=== PATIENT | female | born 1995 | race Caucasian/White ===

== ENCOUNTER 2019-07-29 21:52 | Outpatient (CLI) | payer OTHER ==
[2019-07-29 22:55] LABS: Appearance,Urine Cloudy (Clear); Bacteria,Urine Rare /hpf; Bilirubin,Urine Negative (Negative); Blood,Urine Negative (Negative); Color,Urine Yellow; Glucose,Urine (UA) Negative (Negative); Ketones,Urine Negative (Negative); Leukocyte Esterase,Urine Large (Negative); Mucus,Urine Occasional /hpf; Nitrite,Urine Negative (Negative); PH, Urine 6.5 (5.0-8.0); Protein,Urine Negative (Negative); RBC,Urine 3 /hpf (0-5); Specific Gravity,Urine 1.021 (1.001-1.035); Squamous Epithelial Cell,Urine 15 /hpf (0-4); WBC,Urine 45 /hpf (0-5)
[2019-07-29 23:04] VITALS: BP 128/62; PULSE 90; RESP 16; TEMP 97.9
--- NOTE | 2019-09-29 07:41 | P.MSEPDOC ---
Presenting Problems - Arrival Data Date of Arrival on Unit: 07/29/19 Time of Arrival on Unit: 21:52 Mode of Transport: Ambulatory - Complaint OB-Reason for Admission/Chief Complaint: Signs/Symptoms UTI Medical History - Information : 3 Para: 2 Term: 2 : 0 Abortions: Spontaneous or Elective: 0 Number of Living Children: 2 - Gestational Age Gestational Age by ABIGAIL (wks/days): 36 Weeks and 6 Days Review of Systems - Review of Systems Constitutional: No problems Breast: No problems ENT: No problems Cardiovascular: No problems Respiratory: No problems Gastrointestinal: No problems Genitourinary: No problems Musculoskeletal: No problems Neurological: No problems Skin: No problems Vital Signs - Temperature Temperature: 97.9 F Temperature Source: Oral - Pulse Right Brachial Pulse Rate: 90 Pulse Assessment Method: Automatic Cuff - Respirations Respiratory Rate: 16 Oxygen Delivery Method: Room Air - Blood Pressure Right Arm Blood Pressure: 128/62 Blood Pressure Mean: 84 Blood Pressure Source: Automatic Cuff Medical Screen Scoring (Pre) - Cervical Exam Dilation: 1-3 cm = 1 Effacement: More than 50% = 2 Membranes: Intact - Uterine Contractions Frequency: > 5 minutes apart = 1 Duration: N/A Intensity: N/A - Maternal Vital Signs Maternal Temperature: N/A Maternal Blood Pressure: N/A Signs of Preeclampsia: N/A Maternal Respirations: N/A - Maternal Trauma Maternal Trauma: N/A - Assessment - Baby A Baseline FHR: 125 Heart Rate - NICHD Category: Category I (Normal) = 0 NST: Reactive Position: N/A Station: N/A - Total Score - Baby A Total Score - Baby A: 4 - Total Score - Baby B Total Score - Baby B: 4 - Total Score - Baby C Total Score - Baby C: 4 - Level of Risk - Baby A Level of Risk - Baby A: Low (0-5) - Level of Risk - Baby B Level of Risk - Baby B: Low (0-5) - Level of Risk - Baby C Level of Risk - Baby C: Low (0-5) Physician Notification (Pre) - Physician Notified Physician Notified Date: 07/29/19 Physician Notified Time: 23:00 New Order Received: Yes - Notification Comment Comment: D/C home Disposition - Disposition OB Disposition: Discharge to home Discharge Date: 07/29/19 Discharge Time: 23:15 I agree with the RN Medical Screening Exam: No Risk & Benefit of care provided described in d/c instruction: No Risk & Benefit of Care Comment: Cannot agree or disagree secondary to incomplete document Diagnosis: FALSE LABOR BEFORE 37 COMPLETED WEEKS OF GEST, THIRD TRI
== END 2019-07-29 23:00 | disposition home or self-care (01) ==
LOC: FBPOP 21:52
PROVIDERS: ATTEND Obstetrics & Gynecology
DX: O47.03 False labor before 37 completed weeks of gestation, third trimester (principal); Z3A.36 36 weeks gestation of pregnancy
CPT/HCPCS: 59025; 84112; 81001; 87086; 87077; 87186; G0463; 99213

== ENCOUNTER 2019-08-05 21:12 | Outpatient (CLI) | payer OTHER ==
[2019-08-05 22:24] LABS: Appearance,Urine Clear (Clear); Bilirubin,Urine Negative (Negative); Blood,Urine Negative (Negative); Color,Urine Yellow; Glucose,Urine (UA) Negative (Negative); Ketones,Urine Negative (Negative); Leukocyte Esterase,Urine Trace (Negative); Mucus,Urine Rare /hpf; Nitrite,Urine Negative (Negative); PH, Urine 6.5 (5.0-8.0); Protein,Urine Negative (Negative); RBC,Urine 1 /hpf (0-5); Squamous Epithelial Cell,Urine 2 /hpf (0-4); WBC,Urine 4 /hpf (0-5)
[2019-08-05 23:13] VITALS: BP 125/70; PULSE 96; RESP 16; TEMP 96.1
--- NOTE | 2019-08-06 10:56 | P.MSEPDOC ---
Presenting Problems - Arrival Data Date of Arrival on Unit: 08/05/19 Time of Arrival on Unit: 21:14 Mode of Transport: Ambulatory - Complaint OB-Reason for Admission/Chief Complaint: Possible Onset of Labor Comment: contractions since 1800 getting closer together, back pain Medical History - Information : 3 Para: 2 Term: 2 : 0 Abortions: Spontaneous or Elective: 0 Number of Living Children: 2 - Gestational Age Gestational Age by ABIGAIL (wks/days): 37 Weeks and 6 Days - History Comment: Hx UTI treated 07/29-08/05 Review of Systems - Review of Systems Constitutional: No problems Breast: No problems ENT: No problems Cardiovascular: No problems Respiratory: No problems Gastrointestinal: No problems Genitourinary: No problems Musculoskeletal: No problems Neurological: No problems Skin: No problems Vital Signs - Temperature Temperature: 96.1 F - Pulse Right Pulse Rate: 96 Pulse Assessment Method: Automatic Cuff - Respirations Respiratory Rate: 16 Oxygen Delivery Method: Room Air O2 Sat by Pulse Oximetry: 99 - Blood Pressure Right Arm Sitting Blood Pressure: 125/70 Blood Pressure Mean: 88 Blood Pressure Source: Automatic Cuff Medical Screen Scoring (Pre) - Cervical Exam Dilation: 1-3 cm = 1 Membranes: Intact - Uterine Contractions Frequency: > 5 minutes apart = 1 Duration: > 40 seconds = 2 - Maternal Vital Signs Maternal Temperature: N/A Maternal Blood Pressure: N/A Signs of Preeclampsia: N/A Maternal Respirations: N/A - Maternal Trauma Maternal Trauma: N/A - Assessment - Baby A Baseline FHR: 115 Heart Rate - NICHD Category: Category I (Normal) = 0 NST: Reactive Position: N/A Station: N/A - Total Score - Baby A Total Score - Baby A: 4 - Total Score - Baby B Total Score - Baby B: 4 - Total Score - Baby C Total Score - Baby C: 4 - Level of Risk - Baby A Level of Risk - Baby A: Low (0-5) - Level of Risk - Baby B Level of Risk - Baby B: Low (0-5) - Level of Risk - Baby C Level of Risk - Baby C: Low (0-5) Physician Notification (Pre) - Physician Notified Physician Notified Date: 08/05/19 Physician Notified Time: 22:45 New Order Received: Yes (discharge) - Notification Comment Comment: reactive, irregular contractions, urine unremarkable, no cervical change, instructed to hydrate, warm bath, try preg girdle, follow up at [facility] appt Disposition - Disposition OB Disposition: Discharge to home, Written follow up instructions reviewed Discharge Date: 08/05/19 Discharge Time: 22:55 I agree with the RN Medical Screening Exam: Yes Risk & Benefit of care provided described in d/c instruction: Yes Diagnosis: FALSE LABOR AT OR AFTER 37 COMPLETED WEEKS OF GESTATION
== END 2019-08-05 22:55 | disposition home or self-care (01) ==
LOC: FBPOP 21:12
PROVIDERS: ATTEND Obstetrics & Gynecology
DX: O47.1 False labor at or after 37 completed weeks of gestation (principal); Z3A.37 37 weeks gestation of pregnancy
CPT/HCPCS: 59025; 81001; G0463; 99213

== ENCOUNTER 2019-08-15 06:15 | Inpatient (IN) | payer OTHER ==
[2019-08-15] MEDS ORDERED: LIDOCAINE 0.5% (PF) 5 MG/ML (50 ML SDV) SQ PRN (06:53)
[2019-08-15] MEDS ORDERED: METHYLERGONOVINE 0.2 MG/ML 1 ML AMP IM PRN (06:53)
[2019-08-15] MEDS ORDERED: TERBUTALINE 1 MG/ML VIAL SQ PRN (06:53)
[2019-08-15] MEDS ORDERED: CARBOPROST TROMETHAMINE 250 MCG/ML 1 ML AMP IM PRN (06:53)
[2019-08-15] MEDS ORDERED: OXYTOCIN 10 UNIT/ML 1 ML VIAL IM PRN (06:53)
[2019-08-15] MEDS ORDERED: OXYTOCIN 30 UNITS/500 ML NS 30 UNIT in SALINE 1 500ML.BAG IV SCH (07:00)
[2019-08-15 07:10] LABS: Basophils # (A) 0.1 k/uL (0-0.2); Basophils % (A) 1 %; Eosinophils # (A) 0.1 k/uL (0-0.7); Eosinophils % (A) 1 %; HCT 37.9 % (34.0-46.0); HGB 12.2 gm/dL (11.4-16.0); Lymphocytes % (A) 16 %; MCH 26.6 pg (25.0-35.0); MCHC 32.3 g/dL (31.0-37.0); MCV 82.5 fL (80.0-100.0); Mean Platelet Volume 7.4; Monocytes # (A) 0.7 k/uL (0-1.0); Monocytes % (A) 5 %; Neutrophils # (A) 9.3 k/uL (1.3-7.7); Neutrophils % (A) 75 %; Platelet Count 246 k/uL (150-450); RBC 4.59 m/uL (3.80-5.40); WBC 12.5 k/uL (3.8-10.6)
[2019-08-15] MEDS: LACTATED RINGERS 1,000 ML IV SCH ×3 (07:16→15:00)
[2019-08-15 07:41] VITALS: BMI 41.9
--- NOTE | 2019-08-15 09:02 | P.HPOB ---
History of Present Illness H&P Date: 08/15/19 Chief Complaint: 39-2/7 weeks, induction The patient is a 24-year-old 3 para 2 scissors or 2 admitted at 39-2/7 weeks as established by yumiko Brennan. And confirmed by second trimester ultrasound. She is admitted for elective induction with all signs reassuring and a favorable cervix. She did transfer care from [place] at approximately 36 weeks of but had regular care prior to her transfer to the [facility]. Her has otherwise been apparently uncomplicated and group B strep status is negative. Obstetrical history: 3 para 2 scissors or 22 previous normal spontaneous vaginal deliveries at term. Current statistics are listed in history present illness. EDC of 08/20/2019 was established by yumiko Montano And confirmed by second trimester ultrasound. Laboratory workup demonstrates a blood type of A+ with a negative antibody screen. Rubella status is immune. The remainder of the laboratory workup was within normal limits. One hour Glucola was normal and group B strep status is negative. Gynecologic history: Unremarkable with no history of any infections to include STDs. Review of Systems Review of systems is confined to history of present illness. Past Medical History Past Medical History: No Reported History History of Any Multi-Drug Resistant Organisms: None Reported Past Surgical History: No Surgical Hx Reported Past Anesthesia/Blood Transfusion Reactions: No Reported Reaction Past Psychological History: ADD/ADHD, Depression Smoking Status: Current every day smoker Past Alcohol Use History: None Reported Past Drug Use History: None Reported - Past Family History Father Family Medical History: No Reported History Mother Family Medical History: No Reported History Medications and Allergies Home Medications Medication Instructions Recorded Confirmed Type No Known Home Medications 07/29/19 08/15/19 History Allergies Allergy/AdvReac Type Severity Reaction Status Date / Time oxycodone [From Percocet] AdvReac Nausea Verified 08/15/19 06:52 Exam Vital Signs Temp Resp 08/15/19 06:51 97.0 F L 16 Intake and Output 08/14/19 08/15/19 08/15/19 22:59 06:59 14:59 Other: Weight 93.44 kg In general, this is a well-developed, well-nourished white female in no acute distress. Her heart has a regular rhythm and rate without murmur. Her lungs are clear to auscultation bilaterally in all rodriguez. Her abdomen is gravid, nondistended, has normal active bowel sounds, is soft, nontender, and without any palpable masses aside from uterine fundus. Her extremities are without any cyanosis, clubbing, or edema and are nontender to palpation bilaterally. Digital cervical examination demonstrates her cervix to be a tight 3 cm of dilation, 50% effaced, the vertex in presentation at -2 station. Artificial rupture of membranes is carried out demonstrating clear fluid. Results Result Diagrams: 08/15/19 06:50 Abnormal Lab Results - Last 24 Hours (Table) 08/15/19 Range/Units 06:50 WBC 12.5 H (3.8-10.6) k/uL Neutrophils # 9.3 H (1.3-7.7) k/uL Assessment and Plan (1) Term Current Visit: Yes Status: Acute Code(s): Z34.90 - ENCNTR FOR SUPRVSN OF NORMAL , UNSP, UNSP TRIMESTER SNOMED Code(s): 72732639 Plan: The patient is admitted for elective induction of labor at her request. Her cervix is favorable. She has had Pitocin augmentation started and undergone artificial rupture of membranes. She will continue to have close maternal and surveillance and expectant management will be practiced. She has requested an epidural catheter which is being sought at this time.
[2019-08-15] MEDS ORDERED: fentaNYL (PF) 50 MCG/ML 5 ML AMP ONE (09:05)
[2019-08-15] MEDS ORDERED: ROPIVACAINE 5MG/ML 20ML VIAL ONE (09:05)
[2019-08-15] MEDS ORDERED: SODIUM CHLORIDE 0.9% 100 ML BAG ONE (09:05)
[2019-08-15] MEDS ORDERED: ACETAMINOPHEN TAB 325 MG TAB PO PRN (17:55)
[2019-08-15] MEDS ORDERED: ZOLPIDEM 5 MG TAB PO PRN (17:55)
[2019-08-15] MEDS ORDERED: diphenhydrAMINE 25 MG CAP PO PRN (17:55)
[2019-08-15] MEDS ORDERED: HYDROCORTISONE 2.5% RECTAL CREAM 30 GM TUBE RECTAL PRN (17:55)
[2019-08-15] MEDS ORDERED: diphenhydrAMINE 50 MG CAP PO PRN (17:55)
[2019-08-15] MEDS ORDERED: LANOLIN CREAM 5 GM TUBE TOPICAL PRN (17:55)
[2019-08-15] MEDS ORDERED: BENZOCAINE/MENTHOL SPRAY 1 GM/SPRAY AEROSOL TOPICAL PRN (17:55)
[2019-08-15] MEDS ORDERED: SIMETHICONE 80 MG CHEWABLE PO PRN (17:55)
[2019-08-15] MEDS ORDERED: WITCH HAZEL 1 EACH MED..PAD TOPICAL PRN (17:55)
[2019-08-15] MEDS ORDERED: diphenhydrAMINE 50 MG/ML 1 ML VIAL IVP PRN ×2 (17:55)
[2019-08-15] MEDS ORDERED: OXYTOCIN 20 UNITS/1000 ML NS 1,000 ML IV SCH (18:00)
--- NOTE | 2019-08-15 18:01 | P.PROBDLV ---
Vaginal Delivery Note - . Vaginal Delivery Note: The patient is a 24-year-old 4 para 2011 admitted at 39-2/7 weeks by good dating parameters perches admitted for an elective induction of labor with favorable cervix and all signs reassuring. Her has been uncomplicated though the bulk of [place] care [place]. She transferred to our practice at approximately 35 weeks of gestation. Her has been otherwise uncomplicated throughout. Group B strep status is negative. On labor and delivery, she had Pitocin started followed by artificial rupture of membranes demonstrating clear fluid. She had an epidural catheter placed around the onset of the active phase of labor. She made very slow progress through the active phase of labor and was most recently found an 8 cm of dilation. She is undergoing position changes as the thinking was that the infant was presenting in occiput posterior position. She suddenly felt the urge to push and the nursing staff noted the head at the perineum. She then was unable to control her urge and pushed over the course of 1 contraction to a precipitous normal spontaneous vaginal delivery of a viable 7 lbs. 9 oz. baby boy with Apgars of 8 at 1 minute and 9 at 5 minutes delivered in the direct occiput posterior position. The delivery was carried out by the nursing staff as I was in route. By the time I had presented, the placenta had been delivered spontaneously, intact, and grossly normal with a grossly normal, centrally inserted three- vessel cord. Examination of the perineum demonstrated a very small second- degree midline perineal laceration which was repaired in standard fashion over a lidocaine block with 3-0 chromic catgut without difficulty. Estimated blood loss for the case was approximately 350 mL. There were no complications other than the precipitous nature of the delivery happening without the presence of a physician at bedside. All sponge, instrument, needle counts were correct. Both mother and infant are resting comfortably in recovery.
[2019-08-15] MEDS: SENNOSIDES-DOCUSATE SODIUM 1 EACH TAB PO SCH (19:38)
[2019-08-15] MEDS: IBUPROFEN 600 MG TAB PO PRN (19:39)
[2019-08-16] MEDS: IBUPROFEN 600 MG TAB PO PRN ×2 (04:33→14:06)
--- NOTE | 2019-08-16 09:04 | P.DS ---
Providers Date of admission: 08/15/19 06:40 Expected date of discharge: 08/16/19 Attending physician: Silvano Sim Primary care physician: Stated None - Discharge Diagnosis(es) (1) Term Current Visit: Yes Status: Acute (2) Normal spontaneous vaginal delivery Current Visit: Yes Status: Acute Hospital Course: The patient is a 24-year-old 4 para 2011 who presents to labor and delivery at 39 to since weeks for elective induction by good dating parameters. Her has been uncomplicated though the majority of [place] She on labor and delivery had Pitocin started followed by artificial rupture of membranes for clear fluid. She had an epidural catheter placed for analgesia and then progressed slowly through the active phase of labor. She ultimately progressed very quickly from 8 cm to complete and then delivered almost immediately thereafter without my presence. The nursing staff witnessed the patient deliver over the course of one push. Her course was unremarkable with vital signs remaining stable and her temperature was afebrile throughout. She was deemed stable for discharge on day #1 and was discharged home to follow-up in the office in 6 weeks' time routinely. Discharge instructions included calling for any significantly increased bleeding or foul-smelling lochia, significantly increased fever abdominal pain, perineal complaints, breast complaints, or anything also concerned her. She was additionally instructed to have nothing in vagina for at least 6 weeks time to include intercourse. She understood her instructions and agrees to follow up as noted above. Discharge medications included only sxyv-bap-gptzyru analgesic pain medications as well as continued vitamins as she has opted to at least initially breast-feed. Maternal blood type is A+ and rubella status is immune. Procedures: #1. Pitocin induction #2. Artificial rupture of membranes #3. Epidural analgesia #4. Normal spontaneous vaginal delivery #5. Repair of perineal laceration Patient Condition at Discharge: Good Plan - Discharge Summary New Discharge Prescriptions: No Action No Known Home Medications Discharge Medication List No Known Home Medications 07/29/19 [History] Follow up Appointment(s)/Referral(s): Silvano Sim MD [STAFF PHYSICIAN] - 6 Weeks Discharge Disposition: HOME SELF-CARE
[2019-08-16 09:30] VITALS: RESP 16
[2019-08-16] MEDS: SENNOSIDES-DOCUSATE SODIUM 1 EACH TAB PO SCH (09:31)
[2019-08-16 16:55] VITALS: BP 122/65; PULSE 73; TEMP 98.6
== END 2019-08-16 18:30 | disposition home or self-care (01) | DRG 807 ==
LOC: 4FBP 06:40
PROVIDERS: ADMIT Obstetrics & Gynecology; ATTEND Obstetrics & Gynecology
DX: O99.334 Smoking (tobacco) complicating childbirth (principal); Z37.0 Single live birth; O70.1 Second degree perineal laceration during delivery; F90.9 Attention-deficit hyperactivity disorder, unspecified type; F32.9 Major depressive disorder, single episode, unspecified; F17.200 Nicotine dependence, unspecified, uncomplicated; O99.344 Other mental disorders complicating childbirth; Z3A.39 39 weeks gestation of pregnancy
CPT/HCPCS: 85025; 86850; 86900; 86901

== ENCOUNTER 2019-08-29 21:05 | Emergency (ER) | payer OTHER ==
[2019-08-29] MEDS ORDERED: KETOROLAC 30 MG/ML 1 ML VIAL IVP STA (21:30)
[2019-08-29] MEDS ORDERED: ONDANSETRON 4 MG/2 ML VIAL IVP STA (21:30)
--- NOTE | 2019-08-29 21:31 | ED ---
Female Urogenital HPI - General Chief complaint: Urogenital Stated complaint: Lower Back Pain Time Seen by Provider: 08/29/19 21:11 Source: patient Mode of arrival: ambulatory Limitations: no limitations - History of Present Illness Initial comments: 24-year-old female 2 weeks presenting today for chief complaint of left flank pain 1 hour prior to presentation patient states she has had onset of sharp stabbing left flank pain she states that they cause nausea and subsequent vomiting. Patient has a chest pain shortness of breath fevers dysuria urgency frequency hematuria or known history of kidney stones. Patient states she had a vaginal denies any increase in vaginal discharge bleeding or lower pelvic pain. Patient denies any other complaints. States she was feeling well until the onset of symptoms. - Related Data Previous Rx's Medication Instructions Recorded Sulfamethox-Tmp 800-160Mg [Bactrim 1 tab PO Q12HR 14 Days #28 tab 08/30/19 DS 800-160 mg] Allergies Allergy/AdvReac Type Severity Reaction Status Date / Time oxycodone [From Percocet] AdvReac Nausea Verified 08/29/19 21:09 Review of Systems ROS Statement: Those systems with pertinent positive or pertinent negative responses have been documented in the HPI. ROS Other: All systems not noted in ROS Statement are negative. Past Medical History Past Medical History: No Reported History History of Any Multi-Drug Resistant Organisms: None Reported Past Surgical History: No Surgical Hx Reported Past Anesthesia/Blood Transfusion Reactions: No Reported Reaction Past Psychological History: ADD/ADHD, Depression Smoking Status: Current every day smoker Past Alcohol Use History: None Reported Past Drug Use History: None Reported - Past Family History Father Family Medical History: No Reported History Mother Family Medical History: No Reported History General Exam - General Exam Comments Initial Comments: General: The patient is awake and alert, actively vomiting, in pain Eye: Pupils are equal, round and reactive to light, extra-ocular movements are intact. No nystagmus. There is normal conjunctiva bilaterally. No signs of icterus. Ears, nose, mouth and throat: There are moist mucous membranes and no oral lesions. Cardiovascular: There is a regular rate and rhythm. No murmur, rub or gallop is appreciated. Respiratory: Lungs are clear to auscultation, respirations are non-labored, breath sounds are equal. No wheezes, stridor, rales, or rhonchi. Gastrointestinal: Soft, non-distended, non-tender abdomen without masses or organomegaly noted. There is no rebound or guarding present. No CVA tenderness. Bowel sounds are unremarkable. Musculoskeletal: Normal ROM, no tenderness. Strength 5/5. Sensation intact. Pulses equal bilaterally 2+. Neurological: A&O x 3. CN II-XII intact grossly, There are no obvious motor or sensory deficits. Coordination appears grossly intact. Speech is normal. Skin: Skin is warm and dry and no rashes or lesions are noted. No LE edema Psychiatric: Cooperative, appropriate mood & affect, normal judgment. Limitations: no limitations Course Vital Signs 08/29/19 21:06 Temperature 98.3 F Pulse Rate 72 Respiratory 20 Rate Blood Pressure 131/98 O2 Sat by Pulse 99 Oximetry Medical Decision Making - Medical Decision Making 24-year-old male presenting for left flank pain and vomiting nausea. States has had right sided flank pain during week. UTI prior to off abx currently (didnt complete course). After administration of Zofran Toradol patient had complete relief of all pain. CT shows no distinct findings consistent with a ureteral stone there is no hydronephrosis which most likely is due to patient's status. Otherwise no other findings of acute abdomen. Patient symptom-free and appears well. Laboratory studies stable, unremarkable-- urinalysis revealed findings consistent infection. concerning for pyelnephritis. Patient nontoxic given 1 dose IVP abx, discharged with bactrim. pt not breast feeding discharged appearing well after discussing case wt Dr. solis. Patient aware of return parameters and importance of primary care follow-up - Lab Data Result diagrams: 08/29/19 21:50 08/29/19 21:50 Lab Results 08/29/19 08/29/19 08/29/19 Range/Units 00:30 21:50 21:50 WBC 8.8 (3.8-10.6) k/uL RBC 4.52 (3.80-5.40) m/uL Hgb 12.3 (11.4-16.0) gm/dL Hct 37.4 (34.0-46.0) % MCV 82.8 (80.0-100.0) fL MCH 27.2 (25.0-35.0) pg MCHC 32.8 (31.0-37.0) g/dL RDW 14.0 (11.5-15.5) % Plt Count 380 (150-450) k/uL Neutrophils % 66 % Lymphocytes % 26 % Monocytes % 5 % Eosinophils % 1 % Basophils % 1 % Neutrophils # 5.8 (1.3-7.7) k/uL Lymphocytes # 2.3 (1.0-4.8) k/uL Monocytes # 0.4 (0-1.0) k/uL Eosinophils # 0.1 (0-0.7) k/uL Basophils # 0.1 (0-0.2) k/uL Sodium 142 (137-145) mmol/L Potassium 3.9 (3.5-5.1) mmol/L Chloride 109 H (98-107) mmol/L Carbon Dioxide 25 (22-30) mmol/L Anion Gap 8 mmol/L BUN 13 (7-17) mg/dL Creatinine 1.11 H (0.52-1.04) mg/dL Est GFR (CKD-EPI)AfAm 80 (>60 ml/min/1.73 sqM) Est GFR (CKD-EPI)NonAf 69 (>60 ml/min/1.73 sqM) Glucose 105 H (74-99) mg/dL Calcium 9.5 (8.4-10.2) mg/dL Total Bilirubin 0.3 (0.2-1.3) mg/dL AST 20 (14-36) U/L ALT 25 (9-52) U/L Alkaline Phosphatase 86 (38-126) U/L Total Protein 6.9 (6.3-8.2) g/dL Albumin 3.9 (3.5-5.0) g/dL Urine Color Yellow Urine Appearance Clear (Clear) Urine pH 5.5 (5.0-8.0) Ur Specific [place] 1.026 (1.001-1.035) Urine Protein Trace H (Negative) Urine Glucose (UA) Negative (Negative) Urine Ketones Negative (Negative) Urine Blood Moderate H (Negative) Urine Nitrite Negative (Negative) Urine Bilirubin Negative (Negative) Urine Urobilinogen <2.0 (<2.0) mg/dL Ur Leukocyte Esterase Moderate H (Negative) Urine RBC 73 H (0-5) /hpf Urine WBC 17 H (0-5) /hpf Ur Squamous Epith Cells 2 (0-4) /hpf Urine Mucus Many H (None) /hpf Disposition Clinical Impression: Left flank pain, Vomiting, Pyelonephritis Disposition: HOME SELF-CARE Condition: Good Instructions (If sedation given, give patient instructions): Kidney Infection (ED) Additional Instructions: Please use medication as discussed. Please follow-up with family doctor in the next 2 days. Please return to emergency room if the symptoms increase or worsen or for any other concerns. Prescriptions: Sulfamethox-Tmp 800-160Mg [Bactrim DS 800-160 mg] 1 tab PO Q12HR 14 Days #28 tab Is patient prescribed a controlled substance at d/c from ED?: No Referrals: Elzbieta Hatch MD [Primary Care Provider] - 1-2 days Time of Disposition: 00:28
[2019-08-29 21:58] LABS: Basophils # (A) 0.1 k/uL (0-0.2); Basophils % (A) 1 %; Eosinophils # (A) 0.1 k/uL (0-0.7); Eosinophils % (A) 1 %; HCT 37.4 % (34.0-46.0); HGB 12.3 gm/dL (11.4-16.0); Lymphocytes # (A) 2.3 k/uL (1.0-4.8); Lymphocytes % (A) 26 %; MCH 27.2 pg (25.0-35.0); MCHC 32.8 g/dL (31.0-37.0); MCV 82.8 fL (80.0-100.0); Mean Platelet Volume 5.8; Monocytes # (A) 0.4 k/uL (0-1.0); Monocytes % (A) 5 %; Neutrophils # (A) 5.8 k/uL (1.3-7.7); Neutrophils % (A) 66 %; Platelet Count 380 k/uL (150-450); RBC 4.52 m/uL (3.80-5.40); WBC 8.8 k/uL (3.8-10.6)
[2019-08-29] MEDS ORDERED: SODIUM CHLORIDE 0.9% 1,000 ML IV ONE (22:02)
[2019-08-29 22:07] LABS: Albumin 3.9 g/dL (3.5-5.0); Calcium 9.5 mg/dL (8.4-10.2); Potassium 3.9 mmol/L (3.5-5.1); Total Bilirubin 0.3 mg/dL (0.2-1.3); Total Protein 6.9 g/dL (6.3-8.2)
[2019-08-29] MEDS ORDERED: SODIUM CHLORIDE 0.9% 1,000 ML IV SCH (22:15)
--- NOTE | 2019-08-29 23:04 | CT ---
EXAMINATION TYPE: CT abdomen pelvis wo con DATE OF EXAM: 08/29/2019 COMPARISON: HISTORY: left flank pain, Two weeks CT DLP: 1610.1 mGycm Automated exposure control for dose reduction was used. Lung bases are clear. There is no pleural effusion. Heart size is normal. There is no pericardial eff usion. Liver spleen pancreas gallbladder appear normal. Bile ducts are not dilated. Stomach appears n ormal. There is no adrenal mass. Kidneys have normal size. There is moderate left-sided hydronephrosis and h ydroureter. I see no ureteral calculus. Right kidney shows no hydronephrosis. There is no retroperito michelle adenopathy. There is enlarged uterus related to recent . There is no free fluid in the pelvis. There is no inguinal hernia. Bladder distends smoothly. There is no mesenteric edema. There is no ascites or free air. Appendix appears normal. There is no s ign of a bowel obstruction. Lumbar spine is intact. Bony pelvis is intact. IMPRESSION: Normal appendix. Left-sided hydronephrosis and hydroureter. No obstructing calculus seen. This could relate to hydronephrosis of . No renal atrophy.
[2019-08-29] MEDS ORDERED: SODIUM CHLORIDE 0.9% 500 ML 500 ML IV ONE (23:43)
[2019-08-30 00:43] LABS: Appearance,Urine Clear (Clear); Bilirubin,Urine Negative (Negative); Blood,Urine Moderate (Negative); Color,Urine Yellow; Glucose,Urine (UA) Negative (Negative); Ketones,Urine Negative (Negative); Leukocyte Esterase,Urine Moderate (Negative); Mucus,Urine Many /hpf; Nitrite,Urine Negative (Negative); PH, Urine 5.5 (5.0-8.0); Protein,Urine Trace (Negative); RBC,Urine 73 /hpf (0-5); Specific Gravity,Urine 1.026 (1.001-1.035); Squamous Epithelial Cell,Urine 2 /hpf (0-4); Urobilinogen,Urine <2.0 mg/dL (<2.0); WBC,Urine 17 /hpf (0-5)
[2019-08-30] MEDS ORDERED: cefTRIAXone IN SWFI 1,000 MG/10 ML SYRINGE IVP STA (00:52)
[2019-08-30 01:17] VITALS: BP 113/68; PULSE 67; RESP 16; TEMP 98.1
== END 2019-08-30 01:17 | disposition home or self-care (01) ==
LOC: EC 21:05
DX: N12 Tubulo-interstitial nephritis, not specified as acute or chronic (principal); F17.200 Nicotine dependence, unspecified, uncomplicated; Z88.5 Allergy status to narcotic agent
CPT/HCPCS: 36415; 74176; 80053; 81001; 85025; 96361; 96374; 96375; 99284